=== PATIENT | male | born 1955 | race African-American/Black ===

== ENCOUNTER → 2021-09-20 09:04 | Outpatient (CLI) | payer MEDICARE, SELFPAY ==
--- NOTE | ~2021-09-20 | XR_ITS ---
EXAMINATION: XR hip LT 2V w AP pelvis INDICATION: Left hip pain TECHNIQUE: AP view the pelvis and three views of the left hip are obtained COMPARISON: None available FINDINGS: Bone alignment is normal. There is no fracture. There is mild osteoarthritis of the hips. C alcified atherosclerosis is noted. IMPRESSION: 1. Mild osteoarthritis in the hips. Reviewed, dictated and finalized at location L.
--- NOTE | ~2021-09-20 | XR_ITS ---
EXAMINATION: XR hip RT min 2V DATE: 09/20/2021 09:44 INDICATION: Right hip pain TECHNIQUE: Anteroposterior, frog leg, and cross-table lateral views of right hip were obtained. COMPARISON: None. FINDINGS: Bone alignment is normal. There is no fracture. There is mild osteoarthritis of the hip. Ca lcified atherosclerosis is noted. There is a phlebolith of the right pelvis. IMPRESSION: 1. Mild osteoarthritis of the hip. Reviewed, dictated and finalized at location L.
== END ==
PROVIDERS: PCP Emergency Medicine; Visit Provider Emergency Medicine
DX: M16.0 Bilateral primary osteoarthritis of hip (principal)
CPT/HCPCS: 73502

== ENCOUNTER 2022-03-20 17:12 | Outpatient (CLI) | payer MEDICARE, SELFPAY ==
[2022-03-20 17:42] LABS: Hematocrit 41.9 % (42.0-52.0); Hemoglobin 13.5 g/dL (14.0-18.0); Mean Corpuscular HGB Conc 32.2 g/dl (32-36); Mean Corpuscular Hemoglobin 27.1 pg (26-34); Mean Platelet Volume 9.3 fl (7.4-10.4); Platelet Count Result 177 k/mm3 (150-375); Red Blood Count 4.99 M/mm3 (4.6-6.20); Red Cell Distribution Width 13.5 % (11.5-14.5); White Blood Count 6.3 K/mm3 (4.5-10.0)
[2022-03-20 17:56] LABS: Alanine Aminotransferase 33 U/L (6-50); Albumin Level 4.6 g/dL (3.5-5.1); Alkaline Phosphatase 54 U/L (38-126); Anion Gap 6 mmol/L (8-16); Aspartate Amino Transferase 33 U/L (17-59); Bilirubin,Total 0.5 mg/dL (0.2-1.3); Blood Urea Nitrogen 32 mg/dL (9-20); Calcium 9.6 mg/dL (8.4-10.2); Carbon Dioxide 30 mmol/L (22-30); Chloride 100 mmol/L (98-107); Cholesterol 171 mg/dL (0-200); Estimated Glomerular Filt Rate > 60; Glucose 62 mg/dL (65-110); HDL Direct 38 mg/dL; Potassium 4.4 mmol/L (3.4-5.0); Sodium 136 mmol/L (137-145); Triglycerides 96 mg/dL (<150)
[2022-03-20 18:06] LABS: LDL Cholesterol Direct 91 mg/dL
[2022-03-20 18:27] LABS: Free T4 Free Thyroxine 1.07 ng/mL (0.78-2.19)
[2022-03-20 21:27] LABS: Hemoglobin A1C 7.1 % (<5.7)
== END 2022-03-20 17:13 | disposition home or self-care (01) ==
PROVIDERS: PCP Emergency Medicine; Visit Provider Emergency Medicine
DX: I12.9 Hypertensive chronic kidney disease with stage 1 through stage 4 chronic kidney disease, or unspecified chronic kidney disease (principal); N18.9 Chronic kidney disease, unspecified; E11.9 Type 2 diabetes mellitus without complications
CPT/HCPCS: 36415; 80053; 80061; 83036; 84439; 84443; 85027

== ENCOUNTER 2022-04-01 06:42 | Outpatient (CLI) | payer MEDICARE, SELFPAY ==
--- NOTE | ~2022-04-01 | US_ITS ---
Ultrasound of the Abdominal Aorta INDICATION: Hypertension TECHNIQUE: Grayscale, color Doppler, and pulsed Doppler images of the aorta and common iliac arteries were obtained. COMPARISON: None. FINDINGS: Maximum vascular dimensions are as follows: Proximal aorta: 3.0 cm Mid aorta: 2.5 cm Distal aorta: 2.6 cm Right common iliac artery: 1.7 cm Left common iliac artery: 1.4 cm There is no evidence of abdominal aortic aneurysm. IMPRESSION: No evidence for abdominal aortic aneurysm. Reviewed, dictated and finalized at location M. SE DRIVER
== END 2022-04-01 06:43 | disposition home or self-care (01) ==
PROVIDERS: PCP Emergency Medicine; Visit Provider Emergency Medicine
DX: E11.9 Type 2 diabetes mellitus without complications (principal)
CPT/HCPCS: 76775

== ENCOUNTER 2022-05-13 17:02 | Outpatient (CLI) | payer MEDICARE, SELFPAY ==
--- NOTE | ~2022-05-13 | DEXA_ITS ---
Bone Density Report Name: ANNABELLE ARIAS Age: 66 Sex: Male Ethnicity: White Date of : 1955 Indication: osteoporosis screening Referring Provider: DERIAN ROMERO Study: Bone densitometry was performed. Exam Date: May 13, 2022 Accession number: [id number] Bone Density: Region BMD T-score Z-score Classification AP Spine(L1-L4) 1.030 -0.6 0.3 Normal Femoral Neck (Left) 0.876 -0.4 0.7 Normal Total Hip (Left) 1.087 0.4 0.9 Normal Femoral Neck (Right) 0.831 -0.7 0.4 Normal Total Hip (Right) 1.051 0.1 0.7 Normal Total Hip Mean 1.069 0.3 0.8 Normal World Health Organization criteria for BMD impression classify patients as: Normal (T-score at or above -1.0), Osteopenia (T-score between -1.0 and -2.5), or Osteoporosis (T-score at or below -2.5). Clinical Information Provided by Patient: Has used the following medications: Vitamin D, Calcium Patient maximum height was 6 No regular weight bearing exercise Impression: The patient has normal bone mass. Discussion: BONE DENSITY IS ABOVE THE MINIMUM DESIRABLE LEVEL AT ALL SKELETAL SITES TESTED. This patient?s bone mineral density is above the minimum desirable level (T-score -1.0 or better) at all sites measured. The patient should follow a healthful lifestyle (good nutrition with adequate calcium and vitamin D, and appropriate weight-bearing exercise). Follow-Up: Consider repeating this study in 5 years or sooner if there is some new clinical indication. Reported by: MARILYN on 05/13/2022 5:32:00 PM. Reviewed, dictated and finalized at location Jyoti ANDRADE
--- NOTE | ~2022-05-13 | XR_ITS ---
Clinical Indication: Hypertension, diabetes PA and lateral views of the chest: Comparison: None Findings: The lungs are clear, without evidence of focal consolidation or pleural effusion. Cardiome diastinal silhouette is within normal limits. Right shoulder arthroplasty noted. Impression: Clear lungs. Reviewed, dictated and finalized at location . Impression: Clear lungs.
[2022-05-13 17:52] LABS: Hematocrit 41.1 % (42.0-52.0); Hemoglobin 13.6 g/dL (14.0-18.0); Mean Corpuscular HGB Conc 33.1 g/dl (32-36); Mean Corpuscular Hemoglobin 27.3 pg (26-34); Mean Corpuscular Volume 82.4 fl (80-100); Platelet Count Result 170 k/mm3 (150-375); Red Blood Count 4.99 M/mm3 (4.6-6.20); Red Cell Distribution Width 13.3 % (11.5-14.5); White Blood Count 6.1 K/mm3 (4.5-10.0)
[2022-05-13 18:03] LABS: Anion Gap 6 mmol/L (8-16); Blood Urea Nitrogen 25 mg/dL (9-20); Calcium 9.6 mg/dL (8.4-10.2); Carbon Dioxide 29 mmol/L (22-30); Chloride 103 mmol/L (98-107); Estimated Glomerular Filt Rate > 60; Glucose 84 mg/dL (65-110); Potassium 4.5 mmol/L (3.4-5.0); Sodium 138 mmol/L (137-145)
[2022-05-13 23:53] LABS: Iron 74 ug/dL (49-181)
[2022-05-14 00:02] LABS: Percent Iron Saturation 17 % (20-50)
== END 2022-05-13 17:03 | disposition home or self-care (01) ==
PROVIDERS: PCP Emergency Medicine; Visit Provider Emergency Medicine
DX: M81.0 Age-related osteoporosis without current pathological fracture (principal); I10 Essential (primary) hypertension; E11.9 Type 2 diabetes mellitus without complications
CPT/HCPCS: 36415; 71046; 77080; 80048; 83540; 83550; 85027

== ENCOUNTER 2022-08-13 16:23 | Outpatient (CLI) | payer MEDICARE, SELFPAY ==
[2022-08-13 17:04] LABS: Basophils Absolute Auto 0.1 K/mm3 (0.0-0.1); Basophils Percent Auto 1.1 % (0.2-1.2); Eosinophils Absolute Auto 0.2 K/mm3 (0-0.3); Eosinophils Percent Auto 4.2 % (0-4.4); Hematocrit 40.5 % (42.0-52.0); Hemoglobin 13.2 g/dL (14.0-18.0); Immature Granulocyte Absolute 0.02 K/mm3 (0.00-0.031); Immature Granulocyte Percent A 0.4 % (0-0.5); Lymphocytes Absolute Auto 1.81 K/mm3 (0.9-3.2); Lymphocytes Percent Auto 34.3 % (18.3-44.2); Mean Corpuscular HGB Conc 32.6 g/dl (32-36); Mean Platelet Volume 9.5 fl (7.4-10.4); Monocytes Absolute Auto 0.6 K/mm3 (0.1-0.6); Monocytes Percent Auto 11.2 % (2.6-8.5); Neutrophils Absolute Auto 2.6 K/mm3 (1.3-6.7); Neutrophils Percent Auto 48.8 % (45.5-73.1); Platelet Count Result 183 k/mm3 (150-375); Red Blood Count 4.88 M/mm3 (4.6-6.20); Red Cell Distribution Width 13.1 % (11.5-14.5); White Blood Count 5.3 K/mm3 (4.5-10.0)
[2022-08-13 17:23] LABS: Alanine Aminotransferase 37 U/L (6-50); Albumin Level 4.4 g/dL (3.5-5.1); Alkaline Phosphatase 48 U/L (38-126); Anion Gap 7 mmol/L (8-16); Aspartate Amino Transferase 38 U/L (17-59); Bilirubin,Total 0.5 mg/dL (0.2-1.3); Blood Urea Nitrogen 25 mg/dL (9-20); Calcium 9.1 mg/dL (8.4-10.2); Carbon Dioxide 28 mmol/L (22-30); Chloride 102 mmol/L (98-107); Estimated Glomerular Filt Rate > 60; Glucose 174 mg/dL (65-110); Lactate Dehydrogenase 287 U/L (120-246); Potassium 3.9 mmol/L (3.4-5.0); Sodium 137 mmol/L (137-145)
[2022-08-13 18:23] LABS: Folic Acid 10.9 ng/mL (2.76->20)
[2022-08-13 20:14] LABS: Iron 85 ug/dL (49-181)
[2022-08-13 20:24] LABS: Percent Iron Saturation 21 % (20-50)
[2022-08-17 07:56] LABS: Methylmalonic Acid 207 nmol/L (87-318)
== END 2022-08-13 16:24 | disposition home or self-care (01) ==
PROVIDERS: PCP Emergency Medicine; Visit Provider Internal Medicine Hematology & Oncology
DX: D64.9 Anemia, unspecified (principal)
CPT/HCPCS: 36415; 80053; 82607; 82728; 82746; 83540; 83550; 83615; 83921; 85025

== ENCOUNTER 2022-12-02 02:27 | Emergency (ER) | payer MEDICARE, SELFPAY ==
--- NOTE | ~2022-12-02 | CT_ITS ---
EXAMINATION: CT abdomen pelvis w con DATE: 12/02/2022 04:20 INDICATION: Abdominal pain. Urinary frequency. TECHNIQUE: Computed tomography (CT) of the abdomen and pelvis was performed with 100 mL Omnipaque 350 intravenous contrast. Automated exposure control and iterative reconstruction technique were employe d. The dose-length product was 1509.81 mGy-cm. COMPARISON: None. FINDINGS: The visualized portions of the lung bases demonstrate mild atelectasis and mild chronic ebony g disease. No pleural effusion. The heart size is normal. There are coronary artery calcifications. N o pericardial effusion. There is a small sliding hiatal hernia. The liver is normal. There are gallst ones in the gallbladder, which is normal in size. The spleen, pancreas, and adrenal glands are normal . There is cortical thinning of the kidneys. There are cysts in the kidneys measuring up to 2.3 cm on the left. There is diffuse bladder wall thickening. There is calcified atherosclerosis of the aorta and many of the other arteries. The prostate is moderately enlarged. There are bilateral inguinal her nias containing fat. There are no dilated loops of bowel. The appendix is normal. There are no pathol ogically enlarged lymph nodes. There is no free intraperitoneal fluid. There is moderate lumbar spond ylosis. IMPRESSION: 1. Diffuse bladder wall thickening, likely secondary to a combination of cystitis and chronic outlet obstruction from the moderately enlarged prostate. Reviewed, dictated and finalized at location A. IMPRESSION: 1. Diffuse bladder wall thickening, likely secondary to a combination of cystit is and chronic outlet obstruction from the moderately enlarged prostate.
[2022-12-02 02:28] VITALS: BP 155/67; PULSE 60; RESP 16; TEMP 36.4; O2SAT 97
[2022-12-02 02:39] VITALS: BP 170/82; PULSE 81; RESP 15; O2SAT 98
--- NOTE | 2022-12-02 03:21 | ED.GENADULT ---
HPI - General Adult General Chief complaint: Urogenital-Male Stated complaint: weak urine flow , burning with urination Time Seen by Provider: 12/02/22 02:53 History of Present Illness HPI narrative: Patient presents to the emergency department with his . He has had urinary frequency all weekend. He is urinating small amounts. Has dysuria but denies lower abdominal discomfort or distention. Patient has a history of urinary frequency at night. He has not seen a urologist for this yet. Started taking an over the counter prostate medicine that he states how his urinary frequency a couple days ago. Has a history of diabetes and he adds that his symptoms are worsened when he drinks sugar based drinks like sweet tea Related Data Allergies Allergy/AdvReac Type Severity Reaction Status Date / Time No Known Allergies Allergy Verified 12/02/22 02:51 Review of Systems Review of Systems: Review of systems negative except what is documented in the HPI Exam Narrative: GENERAL: Well-appearing, well-nourished, and in no acute distress. HEAD: Normocephalic, atraumatic. EYES: PERRLA and EOMI. ENT: Nares clear, no rhinorrhea or epistaxis. Mucous membranes moist. NECK: Supple. CHEST: Clear to auscultation. No respiratory distress. HEART: Regular rate and rhythm. ABDOMEN: Soft, nontender, nondistended. EXTREMITIES: Normal range of motion. No edema. SKIN: Warm, dry, no rash. NEURO: No focal deficits. Alert and oriented x3. PSYCH: Normal mood and affect. Course Course Emergency Course: Differential diagnosis includes but not limited to urinary tract infection, hematuria, bladder cancer, kidney stone Vital Signs Vital signs: Vital Signs Temperature 36.4 C L 12/02/22 02:28 Pulse Rate 60 12/02/22 02:28 Respiratory Rate 16 12/02/22 02:28 Blood Pressure 155/67 H 12/02/22 02:28 Pulse Oximetry 97 12/02/22 02:28 Oxygen Delivery Room Air 12/02/22 02:28 Temperature 36.4 C L 12/02/22 02:28 Pulse Rate 64 12/02/22 05:04 Respiratory Rate 15 12/02/22 05:04 Blood Pressure 149/74 H 12/02/22 05:04 Pulse Oximetry 96 12/02/22 05:04 Oxygen Delivery Room Air 12/02/22 02:28 Medical Decision Making MDM Narrative Medical decision making narrative: Patient denies chest discomfort or shortness of breath. However his monitor shows an irregular rhythm. Heart rate changes from 50s to 80s. EKG pending 04:45am EKG shows premature supraventricular beats.U/A positive for UTI with acute on chronic creatinine elevation. fluids plus abx ordered pending ct results Vital Signs Vital Signs: Vital Signs Temperature 36.4 C L 12/02/22 02:28 Pulse Rate 60 12/02/22 02:28 Respiratory Rate 16 12/02/22 02:28 Blood Pressure 155/67 H 12/02/22 02:28 Pulse Oximetry 97 12/02/22 02:28 Oxygen Delivery Room Air 12/02/22 02:28 Temperature 36.4 C L 12/02/22 02:28 Pulse Rate 64 12/02/22 05:04 Respiratory Rate 15 12/02/22 05:04 Blood Pressure 149/74 H 12/02/22 05:04 Pulse Oximetry 96 12/02/22 05:04 Oxygen Delivery Room Air 12/02/22 02:28 Lab Data 12/02/22 03:28 12/02/22 03:28 Labs: Lab Results 12/02/22 12/02/22 Range/Units 02:53 03:28 WBC 10.2 H (4.5-10.0) K/mm3 RBC 4.60 (4.6-6.20) M/mm3 Hgb 12.7 L (14.0-18.0) g/dL Hct 37.6 L (42.0-52.0) % MCV 81.7 (80-100) fl MCH 27.6 (26-34) pg MCHC 33.8 (32-36) g/dl RDW 13.0 (11.5-14.5) % Plt Count 157 (150-375) k/mm3 MPV 10.0 (7.4-10.4) fl Immature Gran % (Auto) 0.6 H (0-0.5) % Neut % (Auto) 71.7 (45.5-73.1) % Lymph % (Auto) 12.9 L (18.3-44.2) % Riley % (Auto) 12.2 H (2.6-8.5) % Eos % (Auto) 2.2 (0-4.4) % Baso % (Auto) 0.4 (0.2-1.2) % Lymph # (Auto) 1.31 (0.9-3.2) K/mm3 Riley # (Auto) 1.2 H (0.1-0.6) K/mm3 Eos # (Auto) 0.2 (0-0.3) K/mm3 Baso # (Auto) 0.0 (0.0-0.1) K/mm3 Abs Immat Gran (auto) 0.06 H (0.00-0.03
--- NOTE | 2022-12-02 03:31 | ECG_ITS ---
Measurements Intervals [place] Rate: 78 P: 74 [place]: 182 QRS: -3 QRSD: 108 T: 55 QT: 400 QTc: 457 Interpretive Statements SINUS RHYTHM WITH FREQUENT SUPRAVENTRICULAR PREMATURE COMPLEXES MINIMAL VOLTAGE CRITERIA FOR LVH, CONSIDER NORMAL VARIANT [MEETS CRITERIA IN ONE OF: R(aVL), S(V1), R(V5), R(V5/V6)+S(V1)] NONSPECIFIC ST AND T-WAVE ABNORMALITY ABNORMAL RHYTHM ECG NO PREVIOUS ECG AVAILABLE FOR COMPARISON Electronically Signed On 12-02-2022 16:09:28 CDT by Cathryn Singh M.D.
[2022-12-02 03:38] LABS: Basophils Percent Auto 0.4 % (0.2-1.2); Eosinophils Absolute Auto 0.2 K/mm3 (0-0.3); Eosinophils Percent Auto 2.2 % (0-4.4); Hematocrit 37.6 % (42.0-52.0); Hemoglobin 12.7 g/dL (14.0-18.0); Immature Granulocyte Absolute 0.06 K/mm3 (0.00-0.031); Immature Granulocyte Percent A 0.6 % (0-0.5); Lymphocytes Absolute Auto 1.31 K/mm3 (0.9-3.2); Lymphocytes Percent Auto 12.9 % (18.3-44.2); Mean Corpuscular HGB Conc 33.8 g/dl (32-36); Mean Corpuscular Hemoglobin 27.6 pg (26-34); Mean Corpuscular Volume 81.7 fl (80-100); Monocytes Absolute Auto 1.2 K/mm3 (0.1-0.6); Monocytes Percent Auto 12.2 % (2.6-8.5); Neutrophils Absolute Auto 7.3 K/mm3 (1.3-6.7); Neutrophils Percent Auto 71.7 % (45.5-73.1); Platelet Count Result 157 k/mm3 (150-375); White Blood Count 10.2 K/mm3 (4.5-10.0)
[2022-12-02 03:39] LABS: Appearance Urine Clear (Clear); Bilirubin Urine 1+ (Negative); Blood Urine 1+ (Negative); Color Urine Yellow (Yellow); Glucose Urine UA Negative (Negative); Ketones Urine 1+ mg/dL (Negative); Leukocyte Esterase Ur Trace LEU/UL (Negative); Nitrate Urine Negative (Negative); Protein Urine 3+ mg/dL (Negative); Specific Grav Ur >= 1.030 (1.001-1.035); pH Urine 5.5 (5.0-9.0)
[2022-12-02 03:48] LABS: Alanine Aminotransferase 27 U/L (6-50); Albumin Level 4.2 g/dL (3.5-5.1); Alkaline Phosphatase 78 U/L (38-126); Anion Gap 12 mmol/L (8-16); Aspartate Amino Transferase 37 U/L (17-59); Bilirubin,Total 0.9 mg/dL (0.2-1.3); Blood Urea Nitrogen 39 mg/dL (9-20); Calcium 8.8 mg/dL (8.4-10.2); Carbon Dioxide 24 mmol/L (22-30); Chloride 95 mmol/L (98-107); Estimated CRCL calculation 43 ml/min; Estimated Glomerular Filt Rate 40; Glucose 132 mg/dL (65-110); Potassium 3.5 mmol/L (3.4-5.0); Sodium 131 mmol/L (137-145)
[2022-12-02 04:00] LABS: Troponin I 0.022 ng/mL (0.000-0.034)
[2022-12-02 04:04] LABS: Bacteria Urine 4+ /hpf; Need Manual Microscopic Reviewed; Non Pathogenic Casts >20; RBC Urine 0-2 /hpf (0-2); Squamous Epithelial Cell Urine Few /hpf (Few); WBC Urine >100 /hpf
[2022-12-02 04:18] LABS: Add Urine Microscopic? YES
[2022-12-02] MEDS: SODIUM CHLORIDE 0.9% IV 1,000 ML 999 ML IV CONT (04:51)
[2022-12-02] MEDS: cefTRIAXone 2 GM/NS 100 ML 2 GM/100 ML BAG IVPB (04:52)
[2022-12-02 05:04] VITALS: BP 149/74; PULSE 64; RESP 15; O2SAT 96
[2022-12-02 06:40] VITALS: BP 115/54; PULSE 75; RESP 12; O2SAT 98
== END 2022-12-02 06:35 | disposition home or self-care (01) ==
PROVIDERS: Emergency Provider Emergency Medicine; PCP Emergency Medicine
DX: N39.0 Urinary tract infection, site not specified (principal); N40.0 Benign prostatic hyperplasia without lower urinary tract symptoms; N18.9 Chronic kidney disease, unspecified; E11.9 Type 2 diabetes mellitus without complications
CPT/HCPCS: 36415; 74177; 80053; 81001; 84484; 85025; 87077; 87086; 87186; 93005; 96365; 99284; J0696; J7030; Q9967

== ENCOUNTER 2023-01-02 16:48 | Outpatient (CLI) | payer MEDICARE, SELFPAY ==
[2023-01-02 17:55] LABS: Basophils Percent Auto 0.7 % (0.2-1.2); Eosinophils Absolute Auto 0.3 K/mm3 (0-0.3); Eosinophils Percent Auto 4.7 % (0-4.4); Hematocrit 36.3 % (42.0-52.0); Immature Granulocyte Absolute 0.02 K/mm3 (0.00-0.031); Immature Granulocyte Percent A 0.4 % (0-0.5); Lymphocytes Absolute Auto 1.59 K/mm3 (0.9-3.2); Lymphocytes Percent Auto 29.7 % (18.3-44.2); Mean Corpuscular HGB Conc 33.1 g/dl (32-36); Mean Corpuscular Hemoglobin 27.1 pg (26-34); Mean Corpuscular Volume 82.1 fl (80-100); Mean Platelet Volume 9.7 fl (7.4-10.4); Monocytes Absolute Auto 0.6 K/mm3 (0.1-0.6); Monocytes Percent Auto 10.8 % (2.6-8.5); Neutrophils Absolute Auto 2.9 K/mm3 (1.3-6.7); Neutrophils Percent Auto 53.7 % (45.5-73.1); Platelet Count Result 169 k/mm3 (150-375); Red Blood Count 4.42 M/mm3 (4.6-6.20); Red Cell Distribution Width 13.6 % (11.5-14.5); White Blood Count 5.4 K/mm3 (4.5-10.0)
[2023-01-02 18:06] LABS: Anion Gap 13 mmol/L (8-16); Blood Urea Nitrogen 19 mg/dL (9-20); Calcium 9.6 mg/dL (8.4-10.2); Carbon Dioxide 25 mmol/L (22-30); Chloride 101 mmol/L (98-107); Estimated Glomerular Filt Rate > 60; Glucose 247 mg/dL (65-110); Potassium 3.5 mmol/L (3.4-5.0); Sodium 139 mmol/L (137-145)
[2023-01-02 19:11] LABS: Folic Acid 13.4 ng/mL (2.76->20)
[2023-01-02 19:17] LABS: Iron 79 ug/dL (49-181)
[2023-01-02 19:28] LABS: Percent Iron Saturation 22 % (20-50)
== END 2023-01-02 16:49 | disposition home or self-care (01) ==
LOC: ANHLAB 16:51
PROVIDERS: PCP Emergency Medicine; Visit Provider Internal Medicine Hematology & Oncology
DX: D64.9 Anemia, unspecified (principal)
CPT/HCPCS: 36415; 80048; 82607; 82728; 82746; 83540; 83550; 85025

== ENCOUNTER 2023-01-09 17:48 | Emergency (ER) | payer MEDICARE, SELFPAY ==
[2023-01-09 18:04] VITALS: BP 185/90; PULSE 81; RESP 20; TEMP 36.8; O2SAT 100
[2023-01-09 19:17] LABS: Appearance Urine Clear (Clear); Bacteria Urine 4+ /hpf; Bilirubin Urine Negative (Negative); Blood Urine Negative (Negative); Color Urine Yellow (Yellow); Glucose Urine UA Negative (Negative); Ketones Urine Trace mg/dL (Negative); Leukocyte Esterase Ur Trace LEU/UL (Negative); Nitrate Urine Negative (Negative); Non Pathogenic Casts 0-2; Protein Urine 3+ mg/dL (Negative); RBC Urine 0-2 /hpf (0-2); Specific Grav Ur 1.019 (1.001-1.035); Squamous Epithelial Cell Urine None seen /hpf (Few)
[2023-01-09 19:30] LABS: Add Urine Microscopic? YES
--- NOTE | 2023-01-09 21:57 | ED.MALEGU ---
HPI - Male Genitourinary General Chief complaint: Urogenital-Male Stated complaint: burning with urination Time Seen by Provider: 01/09/23 21:02 History of Present Illness HPI Narrative: 67 y/o M reports for evaluation for dysuria and discomfort to his urethral meatus x1 week. He denies new sexual partners but does state he is concerned for an STD. Patient denies scrotal or testicular pain or edema, penile lesions or rashes, abdominal pain, flank pain, fever, nausea or vomiting, hematuria, urinary frequency urgency, low back pain. Of note, patient was evaluated in the emergency department on 12/02/2022 for urinary frequency and difficulty emptying his bladder due to feeling like he has to force his stream. His workup at that time show an acute on chronic creatinine elevation from 1.4-2 and a urinary tract infection. The patient was treated with IV fluids and sent home with Keflex and Flomax. Patient states his symptoms had resolved until he began having dysuria 1 week ago. He denies a sensation of a weak stream now. Patient states he is aware of his CKD and swelling with his PCP regarding this. Related Data Allergies Allergy/AdvReac Type Severity Reaction Status Date / Time Penicillins Allergy Agitated Verified 01/09/23 18:11 Review of Systems Review of Systems: CONSTITUTIONAL: Denies fever, chills, or sweats. EYES: Denies visual changes, redness, or discharge. ENT: Denies rhinorrhea, congestion, sore throat, or otalgia. CARDIOVASCULAR: Denies chest pain, palpitations, or edema. RESPIRATORY: Denies cough or dyspnea. GASTROINTESTINAL: Denies abdominal pain, nausea, vomiting, or diarrhea. GENITOURINARY: See HPI SKIN: Denies rash or itching. MUSCULOSKELETAL: Denies back pain, joint pain, or myalgia. NEUROLOGIC: Denies headache, numbness, or weakness. PSYCHIATRIC: Denies anxiety or depression. Exam Narrative: GENERAL: Well-appearing, well-nourished, and in no acute distress. HEAD: Normocephalic, atraumatic. EYES: PERRLA and EOMI. ENT: Nares clear, no rhinorrhea or epistaxis. Mucous membranes moist. NECK: Supple. CHEST: Clear to auscultation. No respiratory distress. HEART: Regular rate and rhythm. No murmur heard. Normal peripheral pulses. ABDOMEN: Soft, nontender, nondistended, normal active bowel sounds. No CVA tenderness. : No scrotal edema or skin changes. Testicles are nontender. Cremasteric reflex intact bilaterally. No penile lesions or rashes, no edema. No urethral discharge. No tenderness to penis or urethral meatus. EXTREMITIES: Normal range of motion. No edema. SKIN: Warm, dry, no rash. NEURO: No focal deficits. Alert and oriented x3 Course Vital Signs Vital signs: Vital Signs Temperature 98.2 F 01/09/23 18:04 Pulse Rate 81 01/09/23 18:04 Respiratory Rate 20 01/09/23 18:04 Blood Pressure 185/90 H 01/09/23 18:04 Pulse Oximetry 100 01/09/23 18:04 Oxygen Delivery Room Air 01/09/23 18:04 Temperature 98.2 F 01/09/23 18:04 Pulse Rate 81 01/09/23 18:04 Respiratory Rate 20 01/09/23 18:04 Blood Pressure 185/90 H 01/09/23 18:04 Pulse Oximetry 100 01/09/23 18:04 Oxygen Delivery Room Air 01/09/23 18:04 MDM - Male Genitourinary MDM Narrative Medical decision making narrative: 67-year-old male with history of no prostatic hypertrophy reports for evaluation for dysuria and discomfort his urethral meatus x1 week. See HPI for further history. Vitals significant for hypertension of 185/90, otherwise unremarkable. Patient is well-appearing on exam. Abdomen is soft nontender, no CVA tenderness. exam unremarkable. Urinalysis consistent with urinary tract infection. Gonorrhea, chlamydia and Trichomonas tests are negative. History is not consistent with prostatitis. Labs discussed with the patient. Patient was treated with Keflex for UTI 1 month ago. Urine culture reviewed: E. coli growth and susceptibility to Bactrim. Labs from 7 days ago reviewed which do n
[2023-01-09 23:13] LABS: Trichomonas Vag PCR NOT DETECTED (NOT DETECTE)
[2023-01-09 23:35] LABS: Chlamydia trachomatis NOT DETECTED (NOT DETECTE); Neisseria gonorrhoeae PCR NOT DETECTED (NOT DETECTE)
== END 2023-01-10 00:20 | disposition home or self-care (01) ==
PROVIDERS: Emergency Medicine; Emergency Provider Physician Assistant; PCP Emergency Medicine
DX: N30.00 Acute cystitis without hematuria (principal); Z11.3 Encounter for screening for infections with a predominantly sexual mode of transmission
CPT/HCPCS: 81001; 87077; 87086; 87186; 87491; 87591; 87661; 99283